=== PATIENT | male | born 1995 | race Caucasian/White ===

== ENCOUNTER 2017-09-06 07:53 | Emergency (ER) | payer SELFPAY ==
[~2017-09-06] VITALS: Ht 172.7 cm; Wt 63.5 kg
[2017-09-06 07:57] VITALS: BP 121/76
[2017-09-06] MEDS ORDERED: KETOROLAC TROMETH 30 MG/ML 1ML VIAL IV ONE (08:15)
[2017-09-06] MEDS ORDERED: KETOROLAC TROMETH 60MG/2ML VIAL IM ONE (08:15)
[2017-09-06] MEDS ORDERED: ONDANSETRON HCL 4 MG/2 ML VIAL IV ONE (08:15)
[2017-09-06] MEDS ORDERED: SODIUM CHLORIDE 0.9% 1,000 ML IV ONE (08:21)
[2017-09-06] MEDS ORDERED: PROMETHAZINE HCL 25 MG/ML 1ML IV ONE (08:30)
== END 2017-09-06 09:52 | disposition home or self-care (01) ==
LOC: ER 07:53 → EDBD 07:53 → ER 09:48
DX: N20.0 Calculus of kidney (principal)
CPT/HCPCS: 74176; 81002; 96361; 96374; 96375; 99284; J1885; J2550; J7030